=== PATIENT | male | born 1985 | race Caucasian/White ===

== ENCOUNTER → 2022-03-19 08:52 | Outpatient (BNVA) | payer OTHER, SELFPAY | PROVIDERS: Visit Provider Physician Assistant Medical | DX: S39.012A Strain of muscle, fascia and tendon of lower back, initial encounter (principal); X50.1XXA Overexertion from prolonged static or awkward postures, initial encounter | CPT/HCPCS: 72110; 99203 ==

== ENCOUNTER → 2022-03-25 09:50 | Outpatient (BNVA) | payer OTHER, SELFPAY | PROVIDERS: Visit Provider Physician Assistant Medical | DX: M54.50 Low back pain, unspecified (principal) | CPT/HCPCS: 99213 ==

== ENCOUNTER → 2022-04-01 11:01 | Outpatient (BNVA) | payer OTHER, SELFPAY | PROVIDERS: Visit Provider Physician Assistant Medical | DX: S39.012D Strain of muscle, fascia and tendon of lower back, subsequent encounter (principal); X50.1XXD Overexertion from prolonged static or awkward postures, subsequent encounter | CPT/HCPCS: 99213 ==

== ENCOUNTER → 2024-02-25 10:07 | Outpatient (BNVA) | payer SELFPAY | DX: Z02.83 Encounter for blood-alcohol and blood-drug test (principal) ==

== ENCOUNTER → 2024-03-31 07:56 | Outpatient (BNVA) | payer SELFPAY | DX: Z02.79 Encounter for issue of other medical certificate (principal) ==

== ENCOUNTER → 2024-05-12 08:01 | Outpatient (BNVA) | payer SELFPAY | DX: Z02.89 Encounter for other administrative examinations (principal) ==

== ENCOUNTER → 2024-06-16 08:09 | Outpatient (BNVA) | payer SELFPAY | DX: Z02.83 Encounter for blood-alcohol and blood-drug test (principal) ==

== ENCOUNTER → 2024-07-09 08:40 | Outpatient (BNVA) | payer SELFPAY | DX: Z02.89 Encounter for other administrative examinations (principal) ==

== ENCOUNTER → 2024-08-12 07:57 | Outpatient (BNVA) | payer SELFPAY | DX: Z02.89 Encounter for other administrative examinations (principal) ==

== ENCOUNTER → 2024-09-01 08:06 | Outpatient (BNVA) | payer SELFPAY | DX: Z02.79 Encounter for issue of other medical certificate (principal) ==